=== PATIENT | male | born 1990 | race Two or more races ===

== ENCOUNTER 2020-08-13 07:53 | Emergency (ER) | payer MEDICAID, MEDICARE ==
[~2020-08-13] VITALS: Ht 177.8 cm; Wt 82.8 kg
[~2020-08-13 07:53] MED LIST: LABE100T6 PO; LISI2.5T PO
--- NOTE | 2020-08-13 08:06 | NUR ---
ASSUMED CARE OF PATIENT IN ROOM 15. PT CHANGED INTO GOWN. DR. MESA AT BEDSIDE. WARM BLANKET PROVIDED. BP CUFF ATTACHED AND SET TO Q30 MIN INTERVALS. CONTINUOUS SPO2 ATTACHED.
[2020-08-13] MEDS ORDERED: AMOXICILLIN 500 MG CAPSULE PO ONE (08:11)
[2020-08-13] MEDS ORDERED: HYDROmorphone 1 MG/ML, 1ML INJ ONE (08:27)
[2020-08-13] MEDS ORDERED: ONDANSETRON 2MG/ML, 2ML ONE (08:27)
[2020-08-13] MEDS ORDERED: SODIUM CHLORIDE FLUSH 10ML SYR IVF ONE (08:30)
[2020-08-13] MEDS ORDERED: SODIUM CHLORIDE 0.9% 1,000ML IVBOLUS ONE (08:30)
[2020-08-13] MEDS ORDERED: ONDANSETRON 2MG/ML, 2ML IVPush ONE (08:30)
[2020-08-13] MEDS ORDERED: HYDROmorphone 1 MG/ML, 1ML INJ IVPush PRN (08:30)
[2020-08-13 08:32] LABS: BASOPHILS % (AUTO) 1 % (0-1); EOSINOPHILS % (AUTO) 3 % (1-7); LYMPHOCYTES % (AUTO) 16 % (22-44); MEAN CORPUSCULAR HEMOGLOBIN 26.9 pg (27.5-34.5); MEAN CORPUSCULAR HGB CONC 32.6 g/dL (33.2-36.2); MEAN PLATELET VOLUME 7.5 fL (7.4-10.4); MONOCYTES % (AUTO) 5 % (2-9); NEUTROPHILS % (AUTO) 75 % (42-75); PLATELET COUNT 234 x10^3/uL (130-400); RED BLOOD COUNT 3.55 x10^6/uL (4.38-5.82); RED CELL DISTRIBUTION WIDTH 16.9 % (9.4-14.8)
[2020-08-13 08:34] LABS: MD NO
[2020-08-13] MEDS ORDERED: SEVE800T7 PO (08:41)
[2020-08-13] MEDS ORDERED: CARV12.52 PO (08:41)
[2020-08-13] MEDS ORDERED: AMLO-210 PO (08:41)
[2020-08-13] MEDS ORDERED: PATI16.8 PO (08:41)
[2020-08-13] MEDS ORDERED: CLON1PAT TP (08:42)
[2020-08-13] MEDS ORDERED: LOSA50TA14 PO (08:42)
[2020-08-13] MEDS ORDERED: NIFE90TA8 PO (08:44)
[2020-08-13] MEDS ORDERED: OMEP40CA42 PO (08:44)
[2020-08-13] MEDS ORDERED: GABA-826 PO (08:44)
[2020-08-13 08:46] LABS: ALANINE AMINOTRANSFERASE 23 U/L (12-78); ALBUMIN 3.8 g/dL (3.4-5.0); ANION GAP 8 mmol/L (5-15); CALCIUM 9.5 mg/dL (8.5-10.1); CHLORIDE 98 mmol/L (98-107); CREATININE 8.88 mg/dL (0.7-1.3)
[2020-08-13] MEDS ORDERED: HYDR25CA94 PO (08:46)
[2020-08-13] MEDS ORDERED: CALC400T6 PO (08:46)
[2020-08-13 08:48] LABS: ALKALINE PHOSPHATASE 71 U/L (45-117); BILIRUBIN,TOTAL 0.5 mg/dL (0.2-1.0); TOTAL PROTEIN 7.7 g/dL (6.4-8.2)
--- NOTE | 2020-08-13 08:48 | NUR ---
PIV STARTED AND BLOOD DRAWN. PT MEDICATED PER JUL. OXYGEN APPLIED AT 2LMP VIA NASAL CANULA AFTER DILAUDID DUE TO DESATURATION. PT RESTING WITH NO COMPLAINTS.
[2020-08-13 08:49] VITALS: BP 143/80
[2020-08-13] MEDS ORDERED: CEFTRIAXONE PMX 1GM/50ML 50 ML IVPB ONE (09:00)
[2020-08-13] MEDS ORDERED: CEFTRIAXONE PMX 1GM/50ML 50 ML ONE (09:01)
--- NOTE | 2020-08-13 09:05 | NUR ---
ROCEPHIN IV STARTED.
--- NOTE | 2020-08-13 09:58 | NUR ---
ECHOCARDIOGRAM IN PROGRESS.
--- NOTE | 2020-08-13 11:45 | NUR ---
Patient given discharge instructions and they have confirmed that they understand the instructions. Patient ambulatory with steady gait.
== END 2020-08-13 11:45 | disposition home or self-care (01) ==
LOC: ED 09:27
DX: H66.002 Acute suppurative otitis media without spontaneous rupture of ear drum, left ear (principal); J15.9 Unspecified bacterial pneumonia; I12.9 Hypertensive chronic kidney disease with stage 1 through stage 4 chronic kidney disease, or unspecified chronic kidney disease; N18.9 Chronic kidney disease, unspecified; I51.7 Cardiomegaly; R00.0 Tachycardia, unspecified
CPT/HCPCS: 36415; 71045; 80053; 83605; 85025; 86308; 87040; 93005; 93306; 93356; 96361; 96365; 96375; 99285; J0696; J1170; J2405; J7030